=== PATIENT | female | born 1955 | race Caucasian/White ===

== ENCOUNTER → 2016-10-22 | Outpatient (CLI) | payer OTHER ==
[~2016-10-22] MED LIST: DIOVAN; GLUCOPHAGE1000 MG PO; GLUCOSAMINE SU500 MG PO; GLUCOTROL10 MG PO; JANUVIA100 MG PO; LANTUS SC; LIPITOR80 MG PO; NEXIUM40 MG PO
== END ==
LOC: CAT 08:29
DX: I25.10 Atherosclerotic heart disease of native coronary artery without angina pectoris (principal); R91.1 Solitary pulmonary nodule; R93.8 Abnormal findings on diagnostic imaging of other specified body structures

== ENCOUNTER → 2017-03-30 | Outpatient (CLI) | payer OTHER | LOC: ULTRA 14:02 | DX: N85.00 Endometrial hyperplasia, unspecified (principal); N95.0 Postmenopausal bleeding ==

== ENCOUNTER → 2018-09-29 | Outpatient (CLI) | payer OTHER | LOC: RAD 08:59 | DX: R06.02 Shortness of breath (principal); R05 Cough; R41.0 Disorientation, unspecified; E11.9 Type 2 diabetes mellitus without complications; Z79.4 Long term (current) use of insulin ==

== ENCOUNTER → 2020-05-07 | Outpatient (CLI) | payer OTHER | LOC: LAB 10:15 | PROVIDERS: ATTEND Family Medicine | DX: Z20.828 Contact with and (suspected) exposure to other viral communicable diseases (principal); R09.89 Other specified symptoms and signs involving the circulatory and respiratory systems; R09.81 Nasal congestion; R51 Headache ==